=== PATIENT | female | born 1985 | race Hispanic/Latino ===

== ENCOUNTER 2017-10-21 05:36 | Emergency (ER) | payer OTHER, SELFPAY ==
[2017-10-21] MEDS ORDERED: IPRATROPIUM BROM 0.5MG/2.5ML ONE ×2 (05:48→07:30)
[2017-10-21] MEDS ORDERED: ALBUTEROL 2.5 MG/3 ML NEB SOL ONE ×2 (05:48→07:30)
[2017-10-21 06:31] LABS: Urine Blood NEGATIVE (NEG); Urine Glucose NEGATIVE (NEG); Urine Protein NEGATIVE (NEG); Urine Specific Gravity 1.015 (1.005-1.030)
[2017-10-21 06:47] LABS: Absolute Lymphocytes (CBC) 2.1 K/uL (0.7-4.9); Absolute Monocytes 0.8 K/uL (0.1-1.3); Absolute Neutrophil 4.3 K/uL (1.8-8.0); Basophils % 0.4 % (0-1.3); Eosinophils % 6.8 % (0-4.4); Hematocrit 42.8 % (36.0-45.0); Lymphocytes % 26.5 % (15.3-44.8); MCH 28.2 pg (27.0-35.0); MCV 84.7 fL (80-100); MPV 8.4 fL (7.6-11.3); Monocytes % 10.5 % (3.3-12.3); RBC Red Blood Cell Count 5.06 M/uL (3.86-4.86)
[2017-10-21 07:11] LABS: Glucose Level 137 mg/dL (65-120)
[2017-10-21 07:22] LABS: BUN Blood Urea Nitrogen < 5 mg/dL (6-20); Bicarbonate 23 mEq/L (21-31); Sodium Level 137 mEq/L (135-145)
[2017-10-21 07:23] LABS: Potassium 2.9 mEq/L (3.6-5.0)
[2017-10-21] MEDS ORDERED: POTASSIUM 25 MEQ EFFERV TAB ONE (07:30)
[2017-10-21] MEDS ORDERED: METHYLPREDNISOLONE 125 MG INJ ONE (08:27)
[2017-10-21] MEDS ORDERED: MAGNESIUM SULFATE 1 gm IVPB 1 GM/100 ML BAG IV ONE (08:27)
[2017-10-21] MEDS ORDERED: NA CHLORIDE 0.9% 500 ML ONE (08:27)
--- NOTE | 2017-10-21 08:27 | RAD REPORT ---
EXAM DESCRIPTION: US - Transvaginal OB - 10/21/2017 8:12 am CLINICAL HISTORY: Positive test, vaginal bleeding COMPARISON: None. FINDINGS: Blood or fluid is identifiable within the cervical canal. Nabothian cysts are present. Thi ckened endometrial stripe is present with heterogeneous echogenicity. In the fundal portion of the en dometrial cavity there is an irregularly-shaped hypoechoic focus. In the setting of positive pregnanc y, this could be an irregular or abnormal configured gestational sac. No yolk sac or pole confi rmed within this structure. No cardiac activity can be confirmed. Both ovaries are identifiable. No suspicious ovarian or adnexal finding. Technologist obtained measurements of echogenic material within the presumed gestational sac. It is v kash uncertain if this truly represents a pole. IMPRESSION: Irregularly-shaped hypoechoic structure within the fundal portion of the endometrial cav ity could be an approximately 5 week sized abnormally shaped gestational sac. There is fluid or old b lood in the cervical canal. No normal appearing gestational sac identified. No yolk sac or pole confirmed. No adnexal abnormality. Followup sonography can be performed if serial beta HCG studies indicate ongoing .
[2017-10-21] MEDS ORDERED: POTASSIUM CL 10 MEQ in NA CHLORIDE 0.9% 100 ML IV ONE (08:45)
[2017-10-21] MEDS ORDERED: NA CHLORIDE 0.9% 250 ML ONE (09:19)
--- NOTE | 2017-10-21 11:20 | EDPHYS ---
Physician Documentation [facility] Name: Ozzy Aragon Age: 31 yrs Sex: Female : 1985 Arrival Date: 10/21/2017 Time: 05:40 Bed 5 Private MD: ED Physician Judson Palomino HPI: 10/21 06:25 This 31 yrs old Female presents to ER via Ambulatory with complaints of Asthma cp Exacerbation, Breathing Difficulty. 06:25 The patient presents to the emergency department with wheezing, Current therapy: cp albuterol inhaler, that began without any particular precipitating event. 06:25 Onset: The symptoms/episode began/occurred yesterday. cp 06:25 Associated signs and symptoms: Pertinent negatives: chest pain, fever, vomiting. cp 06:25 Severity of symptoms: in the emergency department the symptoms are unchanged despite cp home interventions. 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 - Social history:: Smoking status: Patient/guardian denies using tobacco, Patient/guardian denies using alcohol, street drugs. ROS: 06:30 Constitutional: Negative for body aches, chills, fever, poor PO intake. cp 06:30 Eyes: Negative for injury, pain, redness, and discharge. cp 06:30 ENT: Negative for drainage from ear(s), ear pain, sinus congestion, sore throat, difficulty swallowing, difficulty handling secretions. 06:30 Cardiovascular: Negative for chest pain, edema, palpitations. 06:30 Respiratory: Positive for cough, with no reported sputum, shortness of breath, wheezing. 06:30 Abdomen/GI: Negative for abdominal pain, nausea, vomiting, and diarrhea, black/tarry stool, rectal bleeding. 06:30 Back: Negative for pain at rest, pain with movement, radiated pain. 06:30 : Positive for Negative for urinary symptoms, vaginal bleeding, vaginal discharge. 06:30 Skin: Negative for cellulitis, rash. 06:30 Neuro: Negative for altered mental status, headache, weakness. 06:30 All other systems are negative. Exam: 06:38 Constitutional: The patient appears in no acute distress, alert, awake, cp non-diaphoretic, non-toxic, well developed, well nourished. 06:38 Head/Face: Normocephalic, atraumatic. Eyes: Pupils equal round and reactive to light, cp extra-ocular motions intact. Lids and lashes normal. Conjunctiva and sclera are non-icteric and not injected. Cornea within normal limits. Periorbital areas with no swelling, redness, or edema. ENT: Nares patent. No nasal discharge, no septal abnormalities noted. Tympanic membranes are normal and external auditory canals are clear. Oropharynx with no redness, swelling, or masses, exudates, or evidence of obstruction, uvula midline. Mucous membranes moist. Neck: Trachea midline, no thyromegaly or masses palpated, and no cervical lymphadenopathy. Supple, full range of motion without nuchal rigidity, or vertebral point tenderness. No Meningismus. Chest/axilla: Normal chest wall appearance and motion. Nontender with no deformity. No lesions are appreciated. 06:38 Cardiovascular: Rate: tachycardic, Rhythm: regular, Heart sounds: murmur, not appreciated, Edema: is not appreciated, JVD: is not appreciated. 06:38 Respiratory: the patient does not display signs of respiratory distress, Respirations: normal, no use of accessory muscles, no retractions, no splinting, no tachypnea, labored breathing, is not present, Breath sounds: rhonchi, are not appreciated, stridor, is not appreciated, wheezing: that is moderate, is heard diffusely. 06:38 Abdomen/GI: Inspection: abdomen appears normal, Bowel sounds: active, all quadrants, Palpation: abdomen is soft and non-tender, in all quadrants, rebound tenderness, is not appreciated, voluntary guarding, is not appreciated, involuntary guarding, is not appreciated. 06:38 Back: pain, is absent, ROM is normal. 06:38 Skin: cellulitis, is not appreciated, no rash present. 06:38 Neuro: Orientation: to person, place \T\ time. Mentation: lucid, able to follow commands, Cerebellar function: is grossly normal, Motor: moves all fours, strength is normal, Sensation: no obvious gross deficits. Vital Signs: 05:55 BP 127 / 80; Pulse 113; Resp 22 S; Temp 98(O); Pulse Ox 96% on R/A; Weight 90.72 kg bb (R); Height 5 ft. 4 in. (162.56 cm) (R); Pain 8/10; 07:39 BP 121 / 75; Pulse 107; Resp 22; Pulse Ox 100% on Nebulizer Mask; sv 08:53 BP 115 / 75; Pulse 105; Resp 20; Pulse Ox 99% on R/A; sv 10:00 BP 168 / 91; Pulse 82; Resp 22 S; Pulse Ox 98% on R/A; Pain 8/10; sg 11:16 BP 122 / 81; Pulse 97; Resp 21; Pulse Ox 98% on R/A; sv 05:55 Body Mass Index 34.33 (90.72 kg, 162.56 cm) bb MDM: 06:04 Patient medically screened. cp 11:17 Data reviewed: vital signs, nurses notes, lab test result(s), radiologic studies, cp ultrasound. 11:17 Antibiotic administration: Not indicated, the patient's primary pathology is reactive cp airway disease. Counseling: I had a detailed discussion with the patient and/or guardian regarding: the historical points, exam findings, and any diagnostic results supporting the discharge/admit diagnosis, lab results, radiology results, the need for outpatient follow up, an OB/Gyne specialist, to return to the emergency department if symptoms worsen or persist or if there are any questions or concerns that arise at home. Response to treatment: the patient's symptoms have markedly improved after treatment. 10/21 06:24 Order name: Urine Dipstick--Ancillary (enter results); Complete Time: 06:33 bb 10/21 06:24 Order name: Urine --Ancillary (enter results); Complete Time: 06:33 bb 10/21 06:33 Interpretation: URINE PREG POS; Reviewed. cp 10/21 06:29 Order name: Quantitative Hcg; Complete Time: 07:43 cp 10/21 06:29 Order name: CBC with Diff; Complete Time: 07:05 cp 10/21 07:05 Interpretation: Normal except: RBC 5.06; EOSINOPHIL % 6.8. cp 10/21 06:29 Order name: BMP; Complete Time: 07:43 cp 10/21 08:30 Interpretation: Normal except: GLUC 137; K 2.9; BUN < 5. cp 10/21 06:33 Order name: Rh Type cp 10/21 07:46 Order name: US Transvaginal Ob; Complete Time: 08:29 cp 10/21 09:10 Order name: Rh Typing EDDC 10/21 11:09 Order name: Antibody Screen EDDC 10/21 11:09 Order name: Fetalscreen EDDC 10/21 11:09 Order name: Cord Rh type EDDC 10/21 11:09 Order name: Rhogam EDDC 10/21 06:08 Order name: Urine Dipstick-Ancillary (obtain specimen); Complete Time: 06:42 cp 10/21 06:08 Order name: Urine Test (obtain specimen); Complete Time: 06:42 cp 10/21 07:34 Order name: EKG; Complete Time: 07:35 cp 10/21 07:34 Order name: EKG - Nurse/Tech; Complete Time: 08:50 cp 10/21 07:46 Order name: IV; Complete Time: 08:40 cp Administered Medications: 05:54 Drug: Albuterol - atroVENT (3:1) (2.5 mg - 0.5 mg) 3 ml Route: Nebulizer; ak1 06:19 Follow up: Response: No adverse reaction ak1 06:23 Not Given (Physician Discretion): predniSONE 60 mg PO once; give if test cp negative 07:35 Drug: AtroVENT Aerosol 0.5 mg Route: Inhalation; sv 07:35 Drug: Albuterol 2.5 mg Route: Inhalation; sv 07:47 Drug: Potassium Effervescent Tablet 50 mEq Route: PO; sv 07:49 Follow up: Response: No adverse reaction sv 08:38 Drug: NS 0.9% 500 ml Route: IV; Rate: bolus; Site: right antecubital; sv 08:38 Drug: SOLU-Medrol 125 mg Route: IVP; Site: right antecubital; sv 08:40 Drug: Magnesium Sulfate 1 grams Route: IVPB; Infused Over: 1 hrs; Site: right sv antecubital; 09:55 Drug: Potassium Chloride 10 mEq Route: IV; Rate: calculated rate; Site: right pt antecubital; 14:30 Drug: Rho D Immune Globulin 300 mcg {Note: Left Ventrogluteal.} Route: IM; Site: Other; sg Disposition: 11:46 Co-signature as Attending Physician, Judson Palomino MD. ma2 11:46 Co-signature as Attending Physician, Judson Palomino MD. dawn2 Disposition: 10/21/17 11:19 Discharged to Home. Impression: Unspecified asthma with (acute) exacerbation, related conditions, unspecified. - Condition is Stable. - Discharge Instructions: Asthma, Adult, Medicines During , Threatened Miscarriage, First Trimester of , Pelvic Rest. - Prescriptions for Vitamin 27- 0.8 mg Oral Tablet - take 1 tablet by ORAL route once daily; 30 tablet. Albuterol Sulfate 90 mcg/actuation - inhale 1-2 puff by INHALATION route every 4-6 hours; 1 Inhaler. Prednisone 20 mg Oral Tablet - take 2 tablet by ORAL route once daily for 3 days; 6 tablet. - Medication Reconciliation Form, Thank You Letter, Antibiotic Education, Prescription Opioid Use form. - Follow up: Private Physician; When: primary CABIN AGENT next 48 hours; Reason: Repeat Beta-HCG (48 Hours). - Problem is an acute exacerbation. - Symptoms have improved. Addendum: 10/26/2017 19:53 Co-signature as Attending Physician, Judson Palomino MD. m a2 Signatures: Dispatcher [employer] EDDC Marni Manzo RN RN sv Rajinder Guerra RN RN sg Harriett Deshpande RN RN pt Sindy Mccormick RN RN bb Krenek, Amber, RN RN ak1 Gary Mayo PA PA Judson Marrero MD MD ma2 Corrections: (The following items were deleted from the chart) 10/21 06:58 06:09 Chest Pa And Lat (2 Views)+[email or web address] ordered. [facility] EDDC 14:52 11:19 10/21/2017 11:19 Discharged to Home. Impression: Unspecified asthma with (acute) sg exacerbation; related conditions, unspecified. Condition is Stable. Forms are Medication Reconciliation Form, Thank You Letter, Antibiotic Education, Prescription Opioid Use. Follow up: Private Physician; When: primary CABIN AGENT next 48 hours; Reason: Repeat Beta-HCG (48 Hours). Problem is an acute exacerbation. Symptoms have improved. cp
--- NOTE | 2017-10-21 11:20 | ER ---
Nurse's Notes [facility] Name: Ozzy Aragon Age: 31 yrs Sex: Female : 1985 Arrival Date: 10/21/2017 Time: 05:40 Bed 5 Private MD: Diagnosis: Unspecified asthma with (acute) exacerbation; related conditions, unspecified Presentation: 10/21 05:51 Presenting complaint: Patient states: she is having difficulty breathing since bb yesterday which is getting worse, pt has asthma and has been using her inhaler but it is not working. Transition of care: patient was not received from another setting of care. Onset of symptoms was October 19, 2017. Initial Sepsis Screen: Does the patient meet any 2 criteria? No. Patient's initial sepsis screen is negative. Does the patient have a suspected source of infection? No. Patient's initial sepsis screen is negative. Care prior to arrival: None. 05:51 Method Of Arrival: Ambulatory bb 05:51 Acuity: ANTWON 3 bb Triage Assessment: 05:55 General: Appears uncomfortable, Behavior is calm, cooperative. Pain: Complains of pain bb in back Pain currently is 8 out of 10 on a pain scale. Neuro: Level of Consciousness is awake, alert, obeys commands, Oriented to person, place, time, situation. Cardiovascular: Heart tones S1 S2 present Patient's skin is warm and dry. Respiratory: Reports shortness of breath Airway is patent Respiratory effort is labored, Respiratory pattern is tachypnea Breath sounds with wheezes bilaterally. Onset: The symptoms/episode began/occurred 2 days ago, the patient has moderate shortness of breath. 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 - Social history:: Smoking status: Patient/guardian denies using tobacco, Patient/guardian denies using alcohol, street drugs. Screenin:55 Abuse screen: Denies threats or abuse. Nutritional screening: No deficits noted. bb Tuberculosis screening: No symptoms or risk factors identified. Fall Risk None identified. Assessment: 05:55 Reassessment: No changes from previously documented assessment. see triage assessment. bb 06:20 Reassessment: pt UPT positive discussed findings with pt who states she had a heavy bb period at the first of September with clots and had a large clot a few days later and thinks she may have had a miscarriage. Pt states she has not had sex since then. Pt states she is still spotting a little now. 07:33 General: Appears in no apparent distress. uncomfortable, well developed, Behavior is sv calm, cooperative, appropriate for age. Pain: Complains of pain in face and scalp Pain does not radiate. Pain currently is 8 out of 10 on a pain scale. Neuro: Level of Consciousness is awake, alert, obeys commands, Oriented to person, place, time, situation, Moves all extremities. Full function Speech is normal. Cardiovascular: Heart tones S1 S2 present Patient's skin is warm and dry. Respiratory: Reports mild improvement in breathing Airway is patent Respiratory effort is even, unlabored, Respiratory pattern is regular, symmetrical, Breath sounds with wheezes bilaterally. Derm: Skin is pink, warm \T\ dry. 07:47 Reassessment: Patient and/or family updated on plan of care and expected duration. Pain sv level reassessed. Patient is alert, oriented x 3, equal unlabored respirations, skin warm/dry/pink. Pt reports improvement in breathing. Respiratory: Respiratory effort is even, unlabored, Respiratory pattern is regular, symmetrical, Breath sounds are clear in left posterior upper lobe and right posterior upper lobe Breath sounds with wheezes in left posterior lower lobe, right posterior middle lobe and right posterior lower lobe mild expiratory wheezing to bilateral upper lobes. Vital Signs: 05:55 BP 127 / 80; Pulse 113; Resp 22 S; Temp 98(O); Pulse Ox 96% on R/A; Weight 90.72 kg bb (R); Height 5 ft. 4 in. (162.56 cm) (R); Pain 8/10; 07:39 BP 121 / 75; Pulse 107; Resp 22; Pulse Ox 100% on Nebulizer Mask; sv 08:53 BP 115 / 75; Pulse 105; Resp 20; Pulse Ox 99% on R/A; sv 10:00 BP 168 / 91; Pulse 82; Resp 22 S; Pulse Ox 98% on R/A; Pain 8/10; sg 11:16 BP 122 / 81; Pulse 97; Resp 21; Pulse Ox 98% on R/A; sv 05:55 Body Mass Index 34.33 (90.72 kg, 162.56 cm) bb ED Course: 05:40 Patient arrived in ED. al2 05:51 Sindy Mccormick, RN is Primary Nurse. bb 05:53 Triage completed. bb 05:55 Arm band placed on Patient placed in an exam room, on a stretcher, on pulse oximetry. bb 05:55 Patient has correct armband on for positive identification. Bed in low position. Call bb light in reach. Side rails up X2. Pulse ox on. NIBP on. Warm blanket given. 06:04 Gary Mayo PA is PHCP. cp 06:04 Elfego Luo MD is Attending Physician. cp 06:42 Initial lab(s) drawn, by pa, sent to lab. bb 07:04 Primary Nurse role handed off by Sidny Mccormick, ROLAN sv 07:04 Marni Manzo, ROLAN is Primary Nurse. sv 07:07 Report received from Clover GONGORA and Sindy GONGORA. sv 07:07 Rh Type Sent. sv 07:34 Judson Palomino MD is Attending Physician. cp 07:49 Patient taken to ultrasound. aa4 08:05 US Transvaginal Ob In Process Unspecified. EDMS 08:23 Ultrasound completed. Patient tolerated well. Patient moved back from ultrasound. hr 08:35 Inserted saline lock: 20 gauge in right antecubital area, using aseptic technique. sv Blood collected. Flushed right antecubital with 5 ml normal saline. Administered Medications: 05:54 Drug: Albuterol - atroVENT (3:1) (2.5 mg - 0.5 mg) 3 ml Route: Nebulizer; ak1 06:19 Follow up: Response: No adverse reaction ak1 06:23 Not Given (Physician Discretion): predniSONE 60 mg PO once; give if test cp negative 07:35 Drug: AtroVENT Aerosol 0.5 mg Route: Inhalation; sv 07:35 Drug: Albuterol 2.5 mg Route: Inhalation; sv 07:47 Drug: Potassium Effervescent Tablet 50 mEq Route: PO; sv 07:49 Follow up: Response: No adverse reaction sv 08:38 Drug: NS 0.9% 500 ml Route: IV; Rate: bolus; Site: right antecubital; sv 08:38 Drug: SOLU-Medrol 125 mg Route: IVP; Site: right antecubital; sv 08:40 Drug: Magnesium Sulfate 1 grams Route: IVPB; Infused Over: 1 hrs; Site: right sv antecubital; 09:55 Drug: Potassium Chloride 10 mEq Route: IV; Rate: calculated rate; Site: right pt antecubital; 14:30 Drug: Rho D Immune Globulin 300 mcg {Note: Left Ventrogluteal.} Route: IM; Site: Other; Outcome: 11:19 Discharge ordered by . jhonny 14:52 Patient left the ED. sg Signatures: Dispatcher [employer] Marni Cedillo RN RN sv Gay, Steven, RN RN sg Townsend, Paige, RN RN pt Antonia Calderón Brenda, RN RN bb Frazier, Amanda aa4 Krenek, Amber, RN RN ak1 Gary Mayo PA PA Geri Arrington
--- NOTE | 2017-10-21 14:37 | EKG ---
Test Date: 2017-10-21 Test Time: 08:45:32 Gas Desulfurizer: YOHAN MEASUREMENT RESULTS: Intervals: Rate: 103 PA: 126 QRSD: 86 QT: 342 QTc: 448 Hammond: P: -5 PA: 126 QRS: 9 T: 16 INTERPRETIVE STATEMENTS: Sinus tachycardia Otherwise normal ECG No previous ECG available for comparison Electronically Signed On 10-21-17 14:34:03 CDT by Logan Casiano
== END 2017-10-21 14:52 | disposition home or self-care (01) ==
LOC: ER 05:36
DX: J45.901 Unspecified asthma with (acute) exacerbation (principal); Z3A.01 Less than 8 weeks gestation of pregnancy
CPT/HCPCS: 36415; 76817; 80048; 81003; 81025; 84702; 85025; 86850; 86901; 93005; 94640; 96372; 96374; 96375; 99285; J2790; J2930; J3475